=== PATIENT | female | born 1980 | race Two or more races ===

== ENCOUNTER 2016-10-12 17:03 | Emergency (ER) | payer MEDICAID ==
[~2016-10-12] VITALS: Ht 165.1 cm; Wt 68.0 kg
[2016-10-12 18:03] VITALS: BP 104/71
[2016-10-12] MEDS ORDERED: NKM (18:04)
[2016-10-12] MEDS ORDERED: TYLENOL EXTRA500 MG ORAL (18:27)
[2016-10-12] MEDS ORDERED: CORTISPORIN EAR10 ML LEFT EAR (18:27)
[2016-10-12 18:43] VITALS: BP 104/71
--- NOTE | 2016-10-12 21:25 | Emergency Room Report ---
History of Present Illness General Chief Complaint: Upper Respiratory Illness Source: Patient Present Illness HPI The patient is a 36 old female presenting with left ear pain and sore throat which began 4 days prior. The patient does admit to swimming frequently but denies Q tip use. Pain is described as an 8/10 dull ache and radiates from the left ear to the left jaw and neck. Pain is worse with touch. The patient denies any discharge from the ear. Patient denies any other symptoms including nausea, vomiting, fever, chills, headache, neck stiffness, photophobia Allergies: Coded Allergies: No Known Allergies (Unverified , 10/12/16) Patient History Past Medical History: see triage record Pertinent Family History: none Last Menstrual Period: 09/28/2016 : 2 Para: 2 Reviewed Nursing Documentation: PMH: Agreed, PSxH: Agreed Nursing Documentation-PMH Past Medical History: No Stated History Review of Systems All Other Systems: negative except mentioned in HPI Physical Exam Vital Signs Date Time Temp Pulse Resp B/P Pulse Ox O2 Delivery O2 Flow Rate FiO2 10/12/16 17:57 97.9 79 16 104/71 100 Room Air Sp02 EP Interpretation: reviewed, normal General Appearance: no apparent distress, alert, GCS 15, non-toxic Head: normocephalic, atraumatic Eyes: bilateral eye PERRL, bilateral eye normal inspection ENT: normal pharynx, normal voice, other - L ear EAC erythema and edema. TTP over tragus Neck: full range of motion, supple/symm/no masses Respiratory: chest non-tender, lungs clear, normal breath sounds, no wheezing, speaking full sentences Cardiovascular #1: regular rate, rhythm, no edema Musculoskeletal: back normal, gait/station normal, normal range of motion, non- tender Neurologic: alert, oriented x3, responsive, motor strength/tone normal, sensory intact, speech normal Psychiatric: judgement/insight normal, memory normal, mood/affect normal, no suicidal/homicidal ideation Skin: normal color, no rash, warm/dry, well hydrated Lymphatic: no adenopathy Medical Decision Making PA Attestation Dr. Crockett is my supervising physician. Patient management was discussed with my supervising physician Diagnostic Impression: Primary Impression: Otitis externa of left ear ER Course The patient is a 36 old female presenting with left ear pain and sore throat which began 4 days prior. Differential diagnosis include but not limited to otitis externa, otitis media, mastoiditis, sinusitis, pharyngitis Physical exam: Vitals within normal limits. No apparent distress. HEENT: Left ear external auditory canal is erythematous and edematous. Maceration is noted. Tympanic membrane is intact. No bulging. There is cervical lymphadenopathy. Otherwise exam is unremarkable The patient will be discharged home with a prescription for Cortisporin. ER precautions given Last Vital Signs Date Time Temp Pulse Resp B/P Pulse Ox O2 Delivery O2 Flow Rate FiO2 10/12/16 18:43 97.9 81 16 104/71 100 Room Air Status: improved Disposition: HOME, SELF-CARE Condition: Improved Scripts Acetaminophen* (TYLENOL EXTRA STRENGTH*) 500 Mg Tablet 500 MG ORAL Q8H Y for Prn Headache/Temp > 101, #30 TAB 0 Refills Prov: CARLIE OROZCO 10/12/16 Neomycin/Polymyxin B Sulf/Hc* (CORTISPORIN EAR SOLUTION*) 10 Ml Solution 4 DROP LEFT EAR QID, #10 ML 0 Refills Prov: CARLIE OROZCO 10/12/16 Referrals: NOT CHOSEN [facility],REFERRING (PCP) Patient Instructions: Otitis Externa Additional Instructions: I discussed my findings with the patient. All questions and concerns have been answered. Treatment and medication compliance have been addressed. I advised the patient that they need to follow up with PMD in 3-5 days. Return to ED if symptoms worsen, new symptoms arise, or if needed for any reason. Patient verbalized understanding of discharge instructions. CARLIE OROZCO Oct 12, 2016 21:25
== END 2016-10-12 18:43 | disposition home or self-care (01) ==
LOC: EMR 18:26
DX: H60.92 Unspecified otitis externa, left ear (principal); R07.0 Pain in throat
CPT/HCPCS: 99284

== ENCOUNTER 2017-11-21 18:46 | Emergency (ER) | payer MEDICAID ==
[~2017-11-21] VITALS: Ht 167.6 cm; Wt 79.4 kg
[~2017-11-21 18:46] MED LIST: CORTISPORIN EAR10 ML LEFT EAR; NKM; TYLENOL EXTRA500 MG ORAL
[2017-11-21 18:55] VITALS: BP 112/70
[2017-11-21] MEDS ORDERED: Solu-MEDROL 125mg Inj IM ONE (19:00)
--- NOTE | 2017-11-21 19:05 | Emergency Room Report ---
History of Present Illness General Chief Complaint: Allergic Reaction Source: Patient Present Illness HPI Patient presents with complaints of rash Fairly diffuse including the upper chest back arms Patient reports that is fairly puritic in nature Denies any shortness of breath denies any chest pain Denies any vomiting or diarrhea the rash started earlier today Patient is on amoxicillin and ibuprofen for a dental infection Denies any neck pain or photophobia she started those medications about one week ago But is fairly adamant that she does not feel it is the medication causing the rash Allergies: Coded Allergies: No Known Allergies (Unverified , 10/12/16) Patient History Past Medical History: see triage record Pertinent Family History: none Reviewed Nursing Documentation: PMH: Agreed; PSxH: Agreed Nursing Documentation-PMH Past Medical History: No History, Except For Review of Systems All Other Systems: negative except mentioned in HPI Physical Exam Vital Signs Date Time Temp Pulse Resp B/P (MAP) Pulse Ox O2 Delivery O2 Flow Rate FiO2 11/21/17 18:50 97.9 77 18 112/70 97 Room Air 97.9 Sp02 EP Interpretation: reviewed, normal General Appearance: well appearing, no apparent distress Head: normocephalic, atraumatic Eyes: bilateral eye PERRL, bilateral eye EOMI ENT: hearing grossly normal, normal pharynx, TMs + canals normal, uvula midline Neck: full range of motion, supple, no meningismus, no bony tend Respiratory: lungs clear, normal breath sounds, no rhonchi, no respiratory distress, no retraction, no accessory muscle use Cardiovascular #1: normal peripheral pulses, regular rate, rhythm, no edema, no gallop, no JVD, no murmur Gastrointestinal: normal bowel sounds, non tender, soft, no mass, no organomegaly, non-distended, no guarding, no hernia, no pulsatile mass, no rebound Genitourinary: no CVA tenderness Musculoskeletal: normal inspection Neurologic: oriented x3, responsive, field sales associate III-XII nml as tested, motor strength/ tone normal, sensory intact Psychiatric: mood/affect normal Skin: other - Urticarial rash involving the upper shoulders chest back area bilateral antecubital fossa no lesions in the oral mucosa Lymphatic: normal inspection, no adenopathy Medical Decision Making Diagnostic Impression: Primary Impression: Allergic reaction ER Course Given the patient's urticarial rash she was treated accordingly I did was to her consideration for possible reaction to the medication she is taking Otherwise has no other recent intake of different foods or change in any cleaning solution Patient will require close follow-up for further allergy testing and consideration She was encouraged to stop taking the medication she was prescribed before she can be given different medication by primary physician Last Vital Signs Date Time Temp Pulse Resp B/P (MAP) Pulse Ox O2 Delivery O2 Flow Rate FiO2 11/21/17 18:55 97.9 18 112/70 97 Room Air 97.9 11/21/17 18:50 77 Status: improved Disposition: HOME, SELF-CARE Condition: Improved Scripts Ranitidine Hcl* (ZANTAC*) 150 Mg Tablet 150 MG ORAL TWICE A DAY, #20 TAB Prov: Armando Brooks DO 11/21/17 Prednisone* (PREDNISONE*) 20 Mg Tablet 20 MG ORAL BID, #10 TAB Prov: Armando Brooks DO 11/21/17 Diphenhydramine Hcl* (BENADRYL*) 25 Mg Capsule 25 MG ORAL Q6H PRN for Itching, #20 CAP Prov: Armando Brooks DO 11/21/17 Additional Instructions: Patient is provided with the discharge instructions notified to follow up with primary doctor in the next 2-3 days otherwise return to the er with any worsening symptoms. Please note that this report is being documented using Down technology. This can lead to erroneous entry secondary to incorrect interpretation by the dictating instrument. Armando Brooks DO Nov 21, 2017 19:05
[2017-11-21] MEDS ORDERED: RANITIDINE HCL150 MG ORAL (19:17)
[2017-11-21] MEDS ORDERED: BENADRYL25 MG ORAL (19:17)
[2017-11-21] MEDS ORDERED: PREDNISONE20 MG ORAL (19:17)
[2017-11-21 19:28] VITALS: BP 112/70
== END 2017-11-21 19:30 | disposition home or self-care (01) ==
LOC: EMR 19:08
DX: T78.40XA Allergy, unspecified, initial encounter (principal); R21 Rash and other nonspecific skin eruption; X58.XXXA Exposure to other specified factors, initial encounter
CPT/HCPCS: 96372; 99284; J2930

== ENCOUNTER 2019-01-10 17:20 | Emergency (ER) | payer MEDICAID ==
[~2019-01-10] VITALS: Ht 162.6 cm; Wt 77.1 kg
[~2019-01-10 17:20] MED LIST changes: +BENADRYL25 MG ORAL; +PREDNISONE20 MG ORAL; +RANITIDINE HCL150 MG ORAL
[2019-01-10] MEDS ORDERED: NKM (17:35)
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
[2019-01-10 17:45] VITALS: BP 118/76
[2019-01-10] MEDS ORDERED: Ketorolac 30mg Inj IM ONE (17:45)
--- NOTE | 2019-01-10 17:55 | NUR ---
ED Nurse Note: PT STATES THERE IS NO CHNACE OF . TORADOL ADMINISTERED AND RADIOLOGY INFORMED. PT SIGNED TEST WAIVER FOR CT.
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
[2019-01-10] MEDS ORDERED: NAPROXEN500 M2 ORAL (18:51)
[2019-01-10] MEDS ORDERED: ROBAXIN500 MG PO (18:51)
--- NOTE | 2019-01-10 18:52 | NUR ---
ED Nurse Note: PT LAYING PEACEFULLY IN BED IN NAD. AOX4. PRESCRIPTIONS AND DISCHARGE PAPERWORK EXPLAINED TO PT. PT VERBALIZES UNDERSTANDING AND ALL QUESTIONS ANSWERED. PRESCRIPTIONS AND DISCHARGE PAPERWORK GIVEN TO PT AND ID WRISTBAND REMOVED. PT WALKED OUT OF ER WITH STEADY GAIT AND ALL BELONGINGS.
[2019-01-10 18:53] VITALS: BP 122/82
--- NOTE | 2019-01-12 17:45 | Diagnostic Imaging Report ---
Indication: Neck pain and trauma Technique: Continuous helical imaging of the cervical spine was obtained transaxially from the skull base to the upper thoracic spine. 2-D coronal and sagittal reformatted images were obtained. Automatic Exposure Control was utilized. Total Dose length Product (DLP): 376.[address] Dose Index Volume (CTDIvol): 17.3 mGy Comparison: None Findings: There is no evidence of an acute fracture or malalignment. There is straightening of the cervical spine which may be due to muscle spasm. Atlantoaxial alignment appears normal. Height and configuration of the vertebral bodies and intervertebral discs are within normal limits. Uncovertebral joints and facets are unremarkable. There is no soft tissue swelling. Impression: Negative cervical spine CT The CT scanner at [facility] is accredited by the [employer] and the scans are performed using dose optimization techniques as appropriate to a performed exam including Automatic Exposure control.
--- NOTE | 2019-01-12 17:45 | Diagnostic Imaging Report ---
Indication: Back pain Technique: Continuous helical transaxial imaging of the lumbar spine was obtained. No IV contrast was administered. Coronal 2-D reformats were also obtained. Study obtained in a Siemens sensation [address] Total Dose length Product (DLP): 373.[address] Dose Index Volume (CTDIvol): 13.6 mGy Comparison: None Findings: There is no evidence of an acute fracture or malalignment. Height and configuration of the vertebral bodies and intervertebral discs are within normal limits. The facets are unremarkable. There is no soft tissue swelling. Impression: Negative lumbar spine CT The CT scanner at [facility] is accredited by the [employer] and the scans are performed using dose optimization techniques as appropriate to a performed exam including Automatic Exposure control.
== END 2019-01-10 18:55 | disposition home or self-care (01) ==
LOC: EMR 17:53
DX: S13.4XXA Sprain of ligaments of cervical spine, initial encounter (principal); S33.5XXA Sprain of ligaments of lumbar spine, initial encounter; V43.52XA Car driver injured in collision with other type car in traffic accident, initial encounter; Y92.410 Unspecified street and highway as the place of occurrence of the external cause
CPT/HCPCS: 72125; 72131; 96372; 99284; J1885

== ENCOUNTER 2019-09-20 10:08 | Emergency (ER) | payer MEDICAID ==
[~2019-09-20] VITALS: Ht 160 cm; Wt 72.6 kg
[~2019-09-20 10:08] MED LIST changes: +NAPROXEN500 M2 ORAL; +ROBAXIN500 MG PO
[2019-09-20 10:24] VITALS: BP 111/79
--- NOTE | 2019-09-20 10:35 | NUR ---
ED Nurse Note: pt. aaox4. ambulatoryper pt. si here due to right arm pain, numbness radiating to shoulder/chest since yesterday; Reports no N/V or diaphoresis. Reports no injury or heavy lifting.
[2019-09-20] MEDS ORDERED: IBUPROFEN600 MG ORAL ×2 (12:34→12:42)
[2019-09-20 12:44] VITALS: BP 124/74
--- NOTE | 2019-09-20 12:44 | NUR ---
ED Nurse Note: pt. stated she feels better now
[2019-09-20 12:50] VITALS: BP 124/74
--- NOTE | 2019-09-20 12:50 | NUR ---
ER DISCHARGE NOTE: Patient is cleared to be discharged per ERMD, pt is aox4, on room air, with stable vital signs. pt was given dc and prescription instructions, pt was able to verbalize understanding, pt id band removed. pt is able to ambulate with steady gait. pt took all belongings.
--- NOTE | 2019-09-27 10:12 | Emergency Room Report ---
History of Present Illness General Chief Complaint: Pain Source: Patient Present Illness HPI Patient is a 39-year-old female presents after increased right upper extremity pain. Pain is worse with movement. Denies recent trauma. Denies prior heavy lifting. Associated right-sided hand paresthesias. Reports having some right- sided neck discomfort. As well as right shoulder pain. Denies any fever. Denies similar symptoms in the past. Allergies: Coded Allergies: No Known Allergies (Unverified , 10/12/16) Patient History Past Medical History: see triage record Last Menstrual Period: 09/15/19 Reviewed Nursing Documentation: PMH: Agreed; PSxH: Agreed Nursing Documentation-PMH Past Medical History: No History, Except For Review of Systems All Other Systems: negative except mentioned in HPI Physical Exam General Appearance: well appearing, no apparent distress, GCS 15 Head: normocephalic, atraumatic Eyes: bilateral eye PERRL ENT: hearing grossly normal, normal voice Neck: full range of motion, supple Respiratory: lungs clear, no respiratory distress, speaking full sentences Cardiovascular #1: normal inspection, normal peripheral pulses, regular rate, rhythm Cardiovascular #2: 4+ radial (R), 4+ radial (L) Gastrointestinal: normal inspection Musculoskeletal: normal inspection, normal range of motion, no calf tenderness , decreased range of mation - Decreased range of motion of the right shoulder Neurologic: alert, motor strength/tone normal, music video producer III-XII nml as tested, oriented x3, normal gait Psychiatric: mood/affect normal Skin: normal color, no rash, other - cap refill normal Medical Decision Making Diagnostic Impression: Primary Impression: Extremity pain ER Course Patient presented for right upper extremity pain. Differential diagnosis include was not limited to myocardial infarction, vascular occlusion, cervical radiculopathy among others. Patient has a benign exam and does not appear to require any imaging or laboratory testing at this time. EKG interpreted by me showed normal sinus rhythm without acute ST or T wave changes. Patient pulses appear to be normal. She is neurologically appears to be intact. There is no pronator drift noted. Reflexes appear to be normal. Patient is given medications for pain. She is advised to follow-up with her primary care physician for further evaluation and treatment of right upper extremity pain. Patient symptoms appear to be consistent with some chronic rotator cuff instability. She was given ibuprofen. The patient is advised to follow up with primary care doctor in 1-2 days. Patient is advised to return if any worsening condition or if any changes in status that are concerning. This report is dictated with [employer] floor installer software which may occasionally lead to discrepancies related to use of this software. Status: improved Disposition: HOME, SELF-CARE Condition: Stable Scripts Ibuprofen* (MOTRIN*) 600 Mg Tablet 600 MG ORAL Q8H PRN for For Pain, #30 TAB 0 Refills Prov: Kalpesh Astorga MD 09/20/19 Referrals: [facility],REFERR[facility] (PCP) Patient Instructions: Muscle Pain, Adult Kalpesh Astorga MD Sep 27, 2019 10:12
== END 2019-09-20 12:50 | disposition home or self-care (01) ==
LOC: EMR 12:50
DX: M79.601 Pain in right arm (principal); R07.9 Chest pain, unspecified
CPT/HCPCS: 93005; Z7502; 99283

== ENCOUNTER 2020-01-12 19:29 | Emergency (ER) | payer MEDICAID ==
[~2020-01-12] VITALS: Ht 167.6 cm; Wt 79.4 kg
[~2020-01-12 19:29] MED LIST changes: +IBUPROFEN600 MG ORAL
[2020-01-12 19:44] VITALS: BP 124/85
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
--- NOTE | 2020-01-12 19:49 | NUR ---
ED Nurse Note: ERMD at bedside
[2020-01-12] MEDS ORDERED: Ketorolac 30mg Inj IM ONE (20:00)
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
--- NOTE | 2020-01-12 20:07 | NUR ---
ED Nurse Note: all medications administered. pt tolerated well. no ss of distress noted. will continue to monitor.
[2020-01-12] MEDS ORDERED: ROBAXIN-500MG ORAL (20:15)
[2020-01-12] MEDS ORDERED: TRAMADOL HCL50 MG ORAL (20:15)
[2020-01-12 20:38] VITALS: BP 120/75
--- NOTE | 2020-01-12 20:38 | NUR ---
ER DISCHARGE NOTE: Patient is cleared to be discharged home per ERMD, pt is aox4, 98% on room air, with stable vital signs. pt was given dc and prescription instructions, pt was able to verbalize understanding, pt id band removed. pt is able to ambulate with steady gait. pt took all belongings.
== END 2020-01-12 20:38 | disposition home or self-care (01) ==
LOC: EMR 19:58
DX: S16.1XXD Strain of muscle, fascia and tendon at neck level, subsequent encounter (principal); M62.838 Other muscle spasm; X58.XXXD Exposure to other specified factors, subsequent encounter; M54.6 Pain in thoracic spine
CPT/HCPCS: 96372; J1885; Z7502; 99284

== ENCOUNTER 2020-03-14 11:35 | Emergency (ER) | payer MEDICAID ==
[~2020-03-14] VITALS: Ht 170.2 cm; Wt 87.1 kg
[~2020-03-14 11:35] MED LIST changes: +ROBAXIN-500MG ORAL; +TRAMADOL HCL50 MG ORAL
[2020-03-14 12:26] LABS: BASOPHILS % (AUTO) 1.1 % (0.0-2.0); EOSINOPHILS % (AUTO) 5.2 % (0.0-3.0); HEMATOCRIT 34.9 % (37.0-47.0); HEMOGLOBIN 10.8 G/DL (12.0-16.0); MEAN CORPUSCULAR VOLUME 85 FL (80-99); NEUTROPHILS % (AUTO) 67.6 % (45.0-75.0); PLATELET COUNT 344 K/UL (150-450); RED CELL DISTRIBUTION WIDTH 13.2 % (11.6-14.8)
[2020-03-14 12:40] LABS: APPEARANCE,URINE SLIGHTLY CLOUDY; BILIRUBIN, URINE NEGATIVE (NEGATIVE); COLOR,URINE YELLOW; GLUCOSE, URINE (UA) NEGATIVE (NEGATIVE); KETONES,URINE NEGATIVE (NEGATIVE); LEUKOCYTE ESTERASE ,URINE 2+ (NEGATIVE); NITRITE,URINE NEGATIVE (NEGATIVE); PH,URINE 6 (4.5-8.0); PROTEIN,URINE NEGATIVE (NEGATIVE); UROBILINOGEN,URINE NORMAL MG/DL (0.0-1.0)
[2020-03-14 12:43] VITALS: BP 130/90
[2020-03-14 12:44] LABS: ANION GAP 6 mmol/L (5-15); BLOOD UREA NITROGEN 7 mg/dL (7-18); CARBON DIOXIDE 28 MMOL/L (21-32); CHLORIDE 104 MMOL/L (98-107); CREATININE 0.9 MG/DL (0.55-1.30); POTASSIUM 3.8 MMOL/L (3.5-5.1); SODIUM 138 MMOL/L (136-145)
[2020-03-14 12:49] LABS: ALANINE AMINOTRANSFERASE 30 U/L (12-78); ALBUMIN 3.7 G/DL (3.4-5.0); ALKALINE PHOSPHATASE 90 U/L (46-116); ASPARTATE AMINO TRANSFERASE 22 U/L (15-37); BILIRUBIN,TOTAL 0.3 MG/DL (0.2-1.0)
[2020-03-14] MEDS ORDERED: CEPHALEXIN500 M1 ORAL (13:58)
[2020-03-14] MEDS ORDERED: FAMOTIDINE20 MG ORAL (13:58)
[2020-03-14] MEDS ORDERED: cefTRIAXone 1 GM in NS 55 ML IVPB ONE (14:00)
[2020-03-14 14:06] VITALS: BP 115/60
[2020-03-14 14:15] VITALS: BP 115/60
--- NOTE | 2020-03-14 14:54 | Diagnostic Imaging Report ---
Indication: Reason For Exam: CP Technique: Single AP view of the chest. Comparison: None. Findings: The cardiomediastinal silhouette is within normal limits. There is no focal consolidation, pneumothorax or pleural effusion. Osseous structures demonstrate no acute abnormality. IMPRESSION: No radiographic evidence of acute cardiopulmonary process.
--- NOTE | 2020-03-14 14:58 | Emergency Room Report ---
History of Present Illness General Chief Complaint: Chest Pain Source: Patient Present Illness HPI Disclaimer: Please note that this report is being documented using [employer] technology. This can lead to erroneous entry secondary to incorrect interpretation by the dictating instrument. HPI: 39-year-old female presents for multiple complaints. She is feeling complaints of nausea chest pain shortness of breath dizziness and generalized weakness. Symptoms present for the past week. No vomiting no diarrhea no fever. Intermittent cough. Seen by her primary care doctor yesterday and started on medication for sinusitis as she has had nasal congestion. She denies any sick contacts or recent travel. Regarding her chest pain is more in the epigastric region worse with eating and lying down. PMH: Patient denies any past medical history Allergies: Coded Allergies: No Known Allergies (Unverified , 10/12/16) COVID-19 Screening Contact w/high risk pt: No Recent Travel to affected area: No Experienced COVID-19 symptoms?: No COVID-19 Testing performed PUBLIC HEALTH REGISTRAR: No Patient History Now: No Reviewed Nursing Documentation: PMH: Agreed; PSxH: Agreed Nursing Documentation-PMH Past Medical History: No History, Except For Review of Systems All Other Systems: negative except mentioned in HPI Physical Exam Vital Signs Date Time Temp Pulse Resp B/P (MAP) Pulse Ox O2 Delivery O2 Flow Rate FiO2 03/14/20 11:54 98.4 93 18 130/90 (103) 98 Room Air Sp02 EP Interpretation: reviewed, normal General Appearance: well appearing, no apparent distress Head: normocephalic, atraumatic Eyes: bilateral eye PERRL, bilateral eye EOMI ENT: hearing grossly normal, moist mucus membranes Neck: full range of motion, supple Respiratory: lungs clear, normal breath sounds, no rhonchi, no respiratory distress, no retraction, no wheezing Cardiovascular #1: normal peripheral pulses, regular rate, rhythm, no murmur Gastrointestinal: non tender, soft, non-distended, no guarding Neurologic: alert, oriented x3, no focal defects Skin: normal color, warm/dry Medical Decision Making Diagnostic Impression: Primary Impression: Atypical chest pain Additional Impression: UTI (urinary tract infection) ER Course MDM: [place] included but not limited to UTI, COVID-19, dehydration, did consider ACS, gastritis, Clinical course-IV inserted IV fluids given. Laboratory studies are sent and showed no significant abnormalities. Urinalysis was concerning for UTI so IV antibiotics given. I suspect this may be a cause of patient's generalized weakness and general malaise. She complained of more epigastric pain and less likely chest pain I suspect more likely gastritis or acid reflux will start patient on antacid. EKG had no ischemic changes. Chest x-ray clear. Patient stable for discharge home with continued outpatient follow-up. Given return precautions. COVID-19 testing negative Labs - Laboratory Tests Test 03/14/20 12:15 White Blood Count 9.0 K/UL (4.8-10.8) Red Blood Count 4.10 M/UL (4.20-5.40) L Hemoglobin 10.8 G/DL (12.0-16.0) L Hematocrit 34.9 % (37.0-47.0) L Mean Corpuscular Volume 85 FL (80-99) Mean Corpuscular Hemoglobin 26.4 PG (27.0-31.0) L Mean Corpuscular Hemoglobin Concent 31.0 G/DL (32.0-36.0) L Red Cell Distribution Width 13.2 % (11.6-14.8) Platelet Count 344 K/UL (150-450) Mean Platelet Volume 6.2 FL (6.5-10.1) L Neutrophils (%) (Auto) 67.6 % (45.0-75.0) Lymphocytes (%) (Auto) 19.0 % (20.0-45.0) L Monocytes (%) (Auto) 7.0 % (1.0-10.0) Eosinophils (%) (Auto) 5.2 % (0.0-3.0) H Basophils (%) (Auto) 1.1 % (0.0-2.0) Urine Color Yellow Urine Appearance Slightly cloudy Urine pH 6 (4.5-8.0) Urine Specific [place] 1.020 (1.005-1.035) Urine Protein Negative (NEGATIVE) Urine Glucose (UA) Negative (NEGATIVE) Urine Ketones Negative (NEGATIVE) Urine Blood 3+ (NEGATIVE) H Urine Nitrite Negative (NEGATIVE) Urine Bilirubin Negative (NEGATIVE) Urine Urobilinogen Normal MG/DL (0.0-1.0) Urine Leukocyte Esterase 2+ (NEGATIVE) H Urine RBC 5-10 /HPF (0 - 2) H Urine WBC 20-30 /HPF (0 - 2) H Urine Squamous Epithelial Cells Many /LPF (NONE/OCC) H Urine Bacteria Few /HPF (NONE) Sodium Level 138 MMOL/L (136-145) Potassium Level 3.8 MMOL/L (3.5-5.1) Chloride Level 104 MMOL/L (98-107) Carbon Dioxide Level 28 MMOL/L (21-32) Anion Gap 6 mmol/L (5-15) Blood Urea Nitrogen 7 mg/dL (7-18) Creatinine 0.9 MG/DL (0.55-1.30) Estimated Glomerular Filtration Rate > 60 mL/min (>60) Glucose Level 101 MG/DL (74-106) Calcium Level 9.0 MG/DL (8.5-10.1) Total Bilirubin 0.3 MG/DL (0.2-1.0) Aspartate Amino Transferase (AST) 22 U/L (15-37) Alanine Aminotransferase (ALT) 30 U/L (12-78) Alkaline Phosphatase 90 U/L (46-116) Troponin I 0.000 ng/mL (0.000-0.056) Total Protein 7.4 G/DL (6.4-8.2) Albumin 3.7 G/DL (3.4-5.0) Globulin 3.7 g/dL Albumin/Globulin Ratio 1.0 (1.0-2.7) Microbiology Date/Time Source Procedure Growth Status 03/14/20 12:40 Nasopharynx SARS-CoV-2 RdRp Gene Assay - Final Complete On reevaluation: Vital signs stable patient in no acute distress Plan-discharge home with outpatient follow-up and return precautions EKG Diagnostic Results Rate: normal Rhythm: NSR ST Segments: no acute changes Chest X-Ray Diagnostic Results Chest X-Ray Diagnostic Results : Chest X-Ray Ordered: Yes # of Views/Limited/Complete: 1 View Indication: Chest Pain Interpretation: no consolidation, no effusion, no pneumothorax Impression: No acute disease Electronically Signed by: Levi Jonas MD Last Vital Signs Date Time Temp Pulse Resp B/P (MAP) Pulse Ox O2 Delivery O2 Flow Rate FiO2 03/14/20 14:15 98.4 69 16 115/60 98 Room Air Disposition: HOME, SELF-CARE Condition: Improved Scripts Cephalexin* (KEFLEX*) 500 Mg Tablet 500 MG ORAL EVERY 8 HOURS, #21 CAP Prov: Levi Jonas M.D. 03/14/20 Famotidine* (Pepcid 20mg tablet*) 20 Mg Tablet 20 MG ORAL TWICE A DAY, #60 TAB 0 Refills Prov: Levi Jonas M.D. 03/14/20 Referrals: NON PHYSICIAN (PCP) Patient Instructions: Nonspecific Chest Pain, Urinary Tract Infection, Easy-to- Read Additional Instructions: Patient is instructed to follow-up with her primary care doctor, primary care clinic or [facility] in 1 to 2 days. Patient instructed to return for any worsening symptoms or concerns. Disclaimer: Please note that this report is being documented using [employer] technology. This can lead to erroneous entry secondary to incorrect interpretation by the dictating instrument. Levi Jonas M.D. Mar 14, 2020 14:58
== END 2020-03-14 14:20 | disposition home or self-care (01) ==
LOC: EMR 12:40
DX: R07.9 Chest pain, unspecified (principal); R11.0 Nausea; R06.02 Shortness of breath; R52 Pain, unspecified; R53.1 Weakness
CPT/HCPCS: 36415; 71045; 80053; 81001; 84484; 85025; 87086; 93005; 96361; 96365; J0696; J7030; U0002; Z7502; 99284

== ENCOUNTER 2020-06-20 10:00 | Inpatient (IN) | payer OTHER ==
[~2020-06-20] VITALS: Ht 167.6 cm; Wt 86.2 kg
[~2020-06-20 10:00] MED LIST changes: +CEPHALEXIN500 M1 ORAL; +FAMOTIDINE20 MG ORAL
[2020-07-14] MEDS ORDERED: FAMOTIDINE20 MG ORAL (07:52)
[2020-07-15] MEDS ORDERED: FLUTICASONE PRO16 G1 NASAL (14:04)
[2020-07-18] VITALS (16 sets, daily range): BP systolic 109–129; BP diastolic 66–80
--- NOTE | 2020-07-18 07:27 | Pre-Procedure Note/Attestation ---
Pre-Procedure Note/Attestation Complete Prior to Procedure Planned Procedure: not applicable Procedure Narrative: Artificial disc replacement of cervical 56 and Anterior cervical discectomy and fusion of C67 Indications for Procedure Pre-Operative Diagnosis: herniation C56,67 Attestation I attest that I discussed the nature of the procedure; its benefits; risks and complications; and alternatives (and the risks and benefits of such alternatives), prior to the procedure, with the patient (or the patient's legal wireless sales representative). I attest that, if there was a reasonable possibility of needing a blood transfusion, the patient (or the patient's legal wireless sales representative) was given the [facility] standardized written summary, pursuant to the [place] Blood Safety Act ([place] Health and Safety Code # 1645, as amended). I attest that I re-evaluated the patient just prior to the surgery and that there has been no change in the patient's H&P, except as documented below: Luis Manuel Camacho MD Jul 18, 2020 07:27
--- NOTE | 2020-07-18 07:28 | Brief Operative Note ---
Immediate Post Operative Note Operative Note Chief Complaint: neck pain and radiculopathy Pre-op Diagnosis: herniation C56,67 Procedure: Artificial disc replacement of cervical 56 and Anterior cervical discectomy and fusion of C67 Post-op Diagnosis: same as pre-op Findings: consistent w/pre-op dx studies Surgeon: Doug Configuration Analyst: Glynn Anesthesiologist: Basil Anesthesia: general Specimen: none Complications: none Condition: stable Fluids: IVF Estimated Blood Loss: minimal Drains: none Implant(s) used?: Yes - prodisc c sz 5, nuvasive interlock c sz 6 , osteocell 1cc, 13mmscrews x 3 Luis Manuel Camacho MD Jul 18, 2020 07:28
[2020-07-18] MEDS ORDERED: HYDROmorphone 1mg/ml Carpuject IVP PRN (07:30)
[2020-07-18] MEDS ORDERED: Milk of Magnesia 30ml Ud ORAL PRN (07:30)
[2020-07-18] MEDS ORDERED: Morphine Sulfate 2mg/ml Inj(IV/IM USE ONLY) IV PRN (07:30)
[2020-07-18] MEDS ORDERED: Chloraseptic Spray 20mL Bottle ORAL PRN (07:30)
[2020-07-18] MEDS ORDERED: HYDROcodone/Acetamin 5/325 tab ORAL PRN ×2 (07:30→09:00)
[2020-07-18] MEDS ORDERED: HYDROcodone/Acetamin 7.5/325 tab ORAL PRN ×2 (07:30→09:00)
[2020-07-18] MEDS ORDERED: Morphine Sulfate 4mg/ml Inj (IV USE ONLY) IV PRN ×2 (07:30)
[2020-07-18] MEDS ORDERED: Naloxone 0.4mg/ml Inj IVP PRN (07:30)
[2020-07-18] MEDS ORDERED: Metoclopramide 10mg/2ml Inj IVP PRN (07:30)
--- NOTE | 2020-07-18 08:50 | Anethesia Preoperative Eval ---
Anesthesia Pre-op PMH/ROS General Date of Evaluation: Jul 18, 2020 Time of Evaluation: 10:02 Anesthesiologist: Basil ASA Score: ASA 2 Mallampati Score Class I : Soft palate, uvula, fauces, pillars visible Class II: Soft palate, uvula, fauces visible Class III: Soft palate, base of uvula visible Class IV: Only hard plate visible Mallampati Classification: Class II Surgeon: Doug Diagnosis: Neck Pain Surgical Procedure: ADR C5-6, ACDF C6-7 Family History: no anesthesia problems Allergies: Coded Allergies: No Known Allergies (Unverified , 10/12/16) Medications: see eMAR Patient NPO?: Yes Past Medical History Gastrointestinal/Genitourinary: Reports: GERD Other: obesity Anesthesia Pre-op Phys. Exam Physician Exam Last Vital Signs Date Time Temp Pulse Resp B/P (MAP) Pulse Ox O2 Delivery O2 Flow Rate FiO2 07/18/20 08:26 Room Air 07/18/20 08:13 97.7 75 18 109/68 (82) 98 Constitutional: NAD Neurologic: CN 2-12 intact Cardiovascular: RRR Respiratory: CTA Gastrointestinal: S/NT/ND Airway Exam Mallampati Score: Class II MO: full ROM: limited Teeth: intact Anesthesia Pre-op A/P Labs Urine Test Test 07/18/20 06:50 Urine HCG, Qualitative Negative (NEGATIVE) Risk Assessment & Plan Assessment: ASA 2 Plan: GA, SED, GlideScope Status Change Before Surgery: No Pre-Antibiotics Dru Grams Ancef IV Given Within 1 Hr of Incision: Yes Time Given: 10:42 Ronald Gracia MD Jul 18, 2020 08:50
[2020-07-18] MEDS ORDERED: LORazepam Inj 2mg/ml 1ml IV PRN (09:00)
[2020-07-18] MEDS ORDERED: LR 1000ml 1,000 ML IVLG SCH (09:00)
[2020-07-18] MEDS ORDERED: Labetalol 5mg/ml 20ml vial IV PRN (09:00)
[2020-07-18] MEDS ORDERED: ceFAZolin sod 2 GM in NS 55 ML IVPB ONE (09:00)
[2020-07-18] MEDS ORDERED: Atropine Sulfate 0.4mg/ml inj IVP PRN (09:00)
[2020-07-18] MEDS ORDERED: Acetaminophen (Non formulary) 100 ML IV ONE (09:00)
[2020-07-18] MEDS ORDERED: Midazolam 2mg/2ml Inj IVP PRN (09:00)
[2020-07-18] MEDS ORDERED: DiphenhydrAMINE 50mg/ml Inj IVP PRN (09:00)
[2020-07-18] MEDS ORDERED: oxyCODONE HCL/Acetaminophen 5/325mg ORAL PRN (09:00)
[2020-07-18] MEDS ORDERED: fentaNYL 100 mcg/2 mL IV PRN (09:00)
[2020-07-18] MEDS ORDERED: Ketorolac 30mg Inj IV PRN (09:00)
[2020-07-18] MEDS ORDERED: Rocuronium Bromide 50mg/5ml Inj IV ONE (09:01)
[2020-07-18] MEDS ORDERED: Succinylcholine 20mg/ml 10ml vial ONE (09:03)
[2020-07-18] MEDS ORDERED: Sodium Chloride 10ml vial INJ ONE (09:57)
[2020-07-18] MEDS ORDERED: Lidocaine 1% MPF 10mg/ml 5ml ONE (09:57)
[2020-07-18] MEDS ORDERED: propofoL 1,000mg/100ml IV ONE (10:00)
[2020-07-18] MEDS ORDERED: Sterile Water Irrig 1000ml IRRIG ONE (10:00)
[2020-07-18] MEDS ORDERED: LR 1000ml ONE (10:00)
[2020-07-18] MEDS ORDERED: NS Irrig 1000ml ONE (10:00)
[2020-07-18] MEDS ORDERED: Lidocaine 1% Plain 30 ml INJ ONE (10:06)
[2020-07-18] MEDS ORDERED: Gelfoam Size TOPIC ONE (10:06)
[2020-07-18] MEDS ORDERED: Thrombin 5000 units TOPIC ONE (10:06)
[2020-07-18] MEDS ORDERED: fentaNYL 100 mcg/2 mL IV ONE (10:07)
[2020-07-18] MEDS ORDERED: Bacitracin 50000 Units Vial ONE (10:07)
--- NOTE | 2020-07-18 11:05 | Immediate Post-Op Evaluation ---
Immediate Post-Op Evalulation Immediate Post-Op Evalulation Procedure: ADR C5-6, ACDF C6-7 Date of Evaluation: Jul 18, 2020 Time of Evaluation: 13:10 IV Fluids: 1000 LR Blood Products: 0 Estimated Blood Loss: 75 Urinary Output: 400 Blood Pressure Systolic: 125 Blood Pressure Diastolic: 78 Pulse Rate: 80 Respiratory Rate: 16 O2 Sat by Pulse Oximetry: 100 Temperature (Fahrenheit): 97.6 Pain Score (1-10): 2 Nausea: No Vomiting: No Complications 0 Patient Status: awake, reacts, patent, extubated, none Hydration Status: adequate Dru Grams Ancef IV Given Within 1 Hr of Incision: Yes Time Given: 10:42 Ronald Gracia MD Jul 18, 2020 11:05
--- NOTE | 2020-07-18 11:06 | 48 Hour Post Anesthesia Eval ---
Post Anesthesia Evaluation Procedure: ADR C5-6, ACDF C6-7 Date of Evaluation: Jul 18, 2020 Time of Evaluation: 15:23 Blood Pressure Systolic: 117 0: 74 Pulse Rate: 88 Respiratory Rate: 18 Temperature (Fahrenheit): 98 O2 Sat by Pulse Oximetry: 100 Airway: patent Nausea: No Vomiting: No Pain Intensity: 2 Hydration Status: adequate Cardiopulmonary Status: Stable Mental Status/LOC: patient returned to baseline Follow-up Care/Observations: 0 Post-Anesthesia Complications: 0 Follow-up care needed: N/A Ronald Gracia MD Jul 18, 2020 11:06
[2020-07-18] MEDS ORDERED: Neostigmine 1mg/ml 10ml Inj ONE (12:11)
[2020-07-18] MEDS ORDERED: Glycopyrrolate 0.2mg/ml 1ml Vial ONE (12:11)
[2020-07-18] MEDS: Hydromorphone 0.5mg/0.5ml inj IVP PRN ×2 (13:34→17:53)
[2020-07-18] MEDS: Meperidine 25mg/1ml Inj (FOR RIGORS ONLY) IV PRN ×2 (13:48→17:53)
[2020-07-18] MEDS: Ketorolac 30mg Inj IV PRN ×2 (14:02→17:54)
--- NOTE | 2020-07-18 14:20 | NUR ---
NURSE NOTES: Patient received from PACU via hospital bed, on O2 3LNC, in stable condition. Patient sleeping, awakens with gentle shaking/name. IVF to right hand, site asymptomatic. Right anterior neck, dermabond, CDI, ice pack in place. Neuro checks intact, skin warm, wiggles, pulses palpable. Bilateral SCDs on. Oriented patient to call light and medical equipment. Belongings reviewed, signed. Bed in lowest position, will continue to monitor. Addendum: 07/18/20 at 2038 by Eden Valenzuela RN Called RT for IS. Report received from Radha GARCIA.
--- NOTE | 2020-07-18 15:37 | Diagnostic Imaging Report ---
CLINICAL HISTORY: Neck pain. Intraoperative fluoroscopic imaging FINDINGS: Fluoroscopy independent procedure performed for cervical spine . 39.3 seconds of fluoroscopy time utilized by the ordering physician. Total cumulative dose is 4.41 mGy. Total of 4 spot images are obtained demonstrating anterior cervical fusion at C6-C7 and artificial disc at C5-C6. IMPRESSION: FLUOROSCOPY GUIDED PROCEDURE.
--- NOTE | 2020-07-18 15:39 | Diagnostic Imaging Report ---
INDICATION: Neck pain TECHNIQUE: Frontal and lateral views of the cervical spine COMPARISON: CT cervical spine dated 01/10/2019 FINDINGS: The patient is status post anterior discectomy and fusion at the levels of C5-C6 and C6-C7. No evidence of immediate hardware-related complication. Cervical lordosis is maintained. No acute fracture or spondylolysis listhesis. There is mild prevertebral soft tissue swelling at the surgical bed. There is scattered subcutaneous emphysema. Visualized lung apices are clear. IMPRESSION: Status post anterior discectomy and fusion at C5-C6 and C6-C7 with associated postoperative appearance.
[2020-07-18] MEDS: ceFAZolin sod 1 GM in D5W 55 ML IV SCH (17:58)
[2020-07-18] MEDS: Docusate 100mg cap ORAL SCH (17:58)
[2020-07-18] MEDS: NS w/KCl 20mEq 1000ml 1,000 ML IV SCH (17:59)
--- NOTE | 2020-07-18 19:30 | NUR ---
NURSE HAND-OFF: Important Events on Shift:Post op admission, Emesis 500 ml Patient Status: stable Diet: Post cervical diet soft easy chew Pending Orders: PT eval 07/19, RX in chart Pending Results/Labs:none Pending MD notification:none Latest Vital Signs: Temperature 97.9 , Pulse 100 , B/P 120 /71 , Respiratory Rate 18 , O2 SAT 99 , Nasal Cannula, O2 Flow Rate 3 . Vital Sign Comment: none Latest Teresa Fall Score: 35 Fall Risk: Medium Risk Safety Measures: Call light Within Reach, Bed Alarm , Side Rails Side Rails x1, Bed position Low and Locked. Fall Precautions: Patient Fall Education Report given to Sukhdev GARCIA.
--- NOTE | 2020-07-18 19:30 | Operative Note - Dictated ---
DATE OF OPERATION: 07/18/2020 SURGEON: Luis Manuel Camacho MD, Orthopaedic Spine Surgeon. GLASS RIBBON MACHINE OPERATOR ASSISTANT: STEPHAN Galdamez. PREOPERATIVE DIAGNOSES: 1. Intractable neck pain. 2. Radiculopathy. 3. Herniation, C5-C6 and C6-C7. 4. Neural foraminal stenosis, C5-C6 and C6-C7. 5. Stenosis. POSTOPERATIVE DIAGNOSES: 1. Intractable neck pain. 2. Radiculopathy. 3. Herniation, C5-C6 and C6-C7. 4. Neural foraminal stenosis C5-C6 and C6-C7. 5. Stenosis. PROCEDURE PERFORMED: 1. Anterior cervical discectomy and artificial disc replacement of C5-C6 using ProDisc C, size 5. 2. Anterior cervical discectomy and fusion of C6-C7 using NuVasive Interlock C, size 6 PEEK cage, with three screws of 13 mm length and 1 mL of Osteocel allograft bone and local autograft. 3. Use of intraoperative microscope. 4. Motor-evoked potential monitoring. 5. Somatosensory-evoked potential monitoring. 6. Supervision and interpretation of fluoroscopy. COMPLICATIONS: None. ANESTHESIA: General. ESTIMATED BLOOD LOSS: Less than 100 mL. INDICATIONS FOR SURGERY: This patient is a 40-year-old female, who has a history of diagnoses as listed above. As of result of this, the patient sustained intractable neck pain, radiculopathy, herniation of C5-C6 and C6-C7, neural foraminal stenosis of C5-C6 and C6-C7, and stenosis. We tried a course of conservative management, but despite this course, there was still a significant component of persistent, recalcitrant neck pain and arm pain. The MRI demonstrated significant neural foraminal compromise secondary to disc herniations at C5-C6 and C6-C7. We had a long discussion with Ashokny regarding the risks and benefits of surgery. Our discussion included but was not limited to nonoperative management, chiropractic management, another epidural steroid injection as well as definitive management in the form of surgery. We recommended an artificial disc replacement of cervical C5-C6 and anterior cervical discectomy and fusion of cervical C6-C7 as final definitive management. We reviewed the risks and benefits of surgery with the patient. Our discussion included a comprehensive review of the clinical issues and the nature of the clinical decision. We reviewed the alternatives, including doing nothing. The patient elected to proceed accordingly with an artificial disc replacement of cervical C5-C6 and anterior cervical discectomy and fusion of cervical C6-C7. We had a long discussion regarding the risks, alternatives, and benefits of surgery. Our description of the risks included a discussion in person as well as a signed consent which detailed all pertinent risks from the procedure itself. Briefly, our discussion included but was not limited to infection, bleeding, pseudarthrosis, spinal cord injury, neurovascular injury, dural tear, CSF leak, neuropathy, paralysis, permanent weakness/drop foot/drop arm, paresthesias, blindness, palsy, and weakness. The patient understood there may be a need for a revision surgery or additional procedures. Approach-related complications including dysphonia, dysphagia, blindness, permanent vocal cord and neural injury, hematoma, swallowing and breathing difficulty. Medical complications were reviewed including liver, kidney, shock, cardiopulmonary failure, anesthesia complications including , swelling, damage to the musculature, larynx/voice injury or loss, esophagus/throat, trachea, blood vessels and muscles/muscular sprain and lungs/pneumothorax during this surgical procedure; injury to deeper structures may be temporary or permanent. After this review of risks, the patient understood these and elected to proceed. A written and verbal consent was given. We discussed the pros and cons of all the alternatives. We discussed the uncertainties associated with the decision. Afterwards, I assessed the patient's understanding and explored her preferences. All questions were answered and no guarantees were given. Medical clearance was obtained prior to surgery. INTRAOPERATIVE FINDINGS: C5-C6; at C5-C6, the disc itself was soft and spongy. There was no calcification or crumbled nature to the disc . Upon removal of the disc, I noticed a discrete tear approximately 10 degrees cephalad to caudad in the posterior longitudinal ligament on the right side. The edges of the tear appeared fresh. Mobilization of the tear with Microsect 1-B led to discovery of nuclear fragments in the nucleus pulposus, which had torn through and were encroaching on the neural foramina therein and the posterior spinal cord posteriorly to the thecal sac. C6-C7; at C6-C7, the disc itself was soft and spongy. It was not calcified, dehydrated, or desiccated. After removal of the majority of the disc, I noticed a tear in the posterior longitudinal ligament. This tear was approximately 10 degrees cephalad to caudad, again on the right neural foramina, and a separate tear more vertical in line, which was left-sided. These tears demonstrated free edges, which appeared fresh and not necessarily degenerative in any way. Mobilization of these edges with a Microsect 1-B led to discovery of nuclear pulposus tissue posterior to the torn edges. Upon dissection of this, I noted this led to communication of some nucleus pulposus tissue posteriorly with encroachment on the neural foramina and the thecal sac. This was resected without difficulty with Kerrison 1 and Kerrison 2 rongeur until complete neural foraminotomy was performed without any difficulty. DESCRIPTION OF PROCEDURE: Under the benefit of general endotracheal anesthesia and with the assistance of the entire operative team, the patient was moved from the rvillas onto the operative table in the supine position. The head was secured and carefully positioned appropriately. Bilateral arms were secured with Gel Pads and foam and all bony prominences were padded. For the bilateral lower extremities, SCD and KINGSLEY hose were placed for DVT prophylaxis. A surgical timeout was called, which corroborated our planned procedure of artificial disc replacement of cervical C5-C6 and anterior cervical discectomy and fusion of cervical C6-C7. Preoperative antibiotics were administered within 30 minutes of the incision for antibiotic prophylaxis. Using lateral fluoroscopic radiography, the operative levels were delineated. Next, the wound was prepped and draped with chlorhexidine and sterile drapes. An incision was based on lateral fluoroscopy and we centered our incision at the C5-C6 and C6-C7 interspace and next, using a standard Mtz-Us anterior-based approach, the incision was taken down through the skin and subcutaneous tissues until the vertebral bodies and their corresponding disc spaces were visualized. A needle was placed into the interspace to confirm placement of the operative interspace and we performed the remainder of procedure under microscopic visualization. Next, using bipolar and Bovie cautery to ensure meticulous hemostasis, the longus colli was mobilized bilaterally and retractors were placed deep to the longus colli bilaterally to address retraction. Next, we turned our attention to the radical anterior discectomy. This was initially performed at C5-C6 first by using a 15 blade scalpel followed by narrow pituitaries and a Microsect 5-B curette was used to denude the endplate of all cartilaginous tissue. Next, using a [employer] AM8 drill bit, the vertebral endplates were denuded of all residual cartilage in a esnd-xd-kgyt and inrwp-un-rwchu fashion, and ultimately the posterior uncinate joints bilaterally and posterior osteophytic lips and margins were carefully denuded until clear visualization of the posterior longitudinal ligament was possible. An endplate preparation was performed in the exact same fashion using an intervertebral orthodontist, sequential distraction was obtained throughout the disc space. We saw a tear/rent in the PLL and this was carefully mobilized and dissected using a Microsect 1-B curette until we visualized a discrete disc herniation with compression of the spinal cord as well as neural foramina, which was right more than left sided. This neural foraminal compression was carefully resected using a Kerrison-1 and Kerrison-2 rongeurs until complete decompression of the spinal cord was visualized and complete decompression of the neural foramina and nerve root therein as well as the axilla and lateral margin of the nerve root was visualized and subsequently completely decompressed. The family was notified at one-hour intervals throughout the procedure to provide for consistent updates. We next turned our attention towards trialing our implant within the disc space. We initially tried size 5 and this ProDisc Cervical spacer fit well in regard to depth and width. This implant was opened and prepared. Next, under direct visualization, I confirmed excellent fit in respect to the anterior and posterior vertebral bodies, the uncinate joints, and in regard to toggle. Once satisfied with this placement on serial AP and lateral fluoroscopy, I turned my attention towards cutting our iris. These were cut in the bones using a reciprocating drill and afterwards all free fragments of bone were irrigated. Next, FloSeal was placed into the interspace, then removed in its entirety, and the implant was inserted using fluoroscopic guidance. Next, the Synthes ProDisc C size 5 ADR was then carefully advanced and secured into the intervertebral space under direct visualization and with supervision of AP and lateral fluoroscopic views. I next turned my attention towards the radical anterior discectomy. This was then performed at cervical C6-C7 first by using a 15 blade scalpel followed by narrow pituitaries and a Microsect 5-B curette was used to denude the endplate of all cartilaginous tissue. Next, using a [employer] AM8 drill bit, the vertebral endplates were denuded of all cartilaginous tissue in a mozw-cw-jxcu and tstie-ji-mpvwj fashion, and ultimately the posterior uncinate joints bilaterally and posterior osteophytic lips and margins were carefully denuded until wide and thorough visualization of the posterior longitudinal ligament was possible. At this level, the endplate preparation was performed in the exact same fashion using an intervertebral orthodontist, sequential distraction was obtained throughout the disc space. We saw a tear/rent in the PLL and this was carefully mobilized and dissected using a Microsect 1-B curette until we visualized an obvious disc herniation with compression of the spinal cord as well as neural foramina, which was right more than left sided. This neural foraminal compression was carefully resected using a Kerrison-1 and Kerrison-2 rongeurs until complete decompression of the spinal cord was visualized and complete decompression of the neural foramina and nerve root therein as well as the axilla and lateral margin of the nerve root was visualized and subsequently completely decompressed. We next turned our attention towards trialing our implant within the disc space. We initially tried size 5 and afterwards size 6 trial from the NuVasive Interlock system at this level, which appeared to be appropriate under AP and lateral fluoroscopy as well as in terms of its height, depth, width, and lack of toggle. The PEEK (polyetheretherketone) interbody cages were then both packed with allograft bone from Osteocel and local autograft bone matrix. Next, these were then carefully advanced and secured into their intervertebral spaces under direct visualization and with supervision of AP and lateral fluoroscopic views. We next turned our attention towards plating. Plating was performed at each level with the NuVasive Interlock-C plating system. A total of three screws, size 13 mm in length were inserted and confirmed under AP and lateral fluoroscopy and confirmed to be in excellent position. After a finger sweep, we confirmed removal of all sponges. The retractor was removed and we next turned our attention to meticulous hemostasis with FloSeal and bipolar cautery. After the sponge and needle count was again found to be correct with our second count, we next turned our attention to closure. The wound was again copiously irrigated with antibiotic-impregnated saline. Closure consisted of 4-0 clear nylon for the platysma, and 5-0 clear nylon for the superficial skin. Final skin closure and dressings consisted of Dermabond. Prior to final closure, a final radiograph was obtained, which demonstrated the hardware was intact with excellent position throughout. The patient tolerated the procedure well. The patient was carefully extubated after the conclusion of surgery. We discussed the findings of the surgery with the family upon completion of the case. At this point, the patient was transferred to the spine floor for further observation. Luis Manuel Camacho M.D. DR: HAYLEE JOB#: [id number] CC:
--- NOTE | 2020-07-18 19:50 | NUR ---
NURSE NOTES: Pt received from RADHA Harmon alert and oriented x4 with no acute s/s of distress noted. On 3L NC, breathing even and unlabored. Post-op incision noted on R lateral neck, with dermabond - dry and intact. Bed in lowest position, call light and belongings within reach. Bed in lowest position, call light and belongings within reach.
[2020-07-18] MEDS: HYDROcodone/Acetamin 7.5/325 tab ORAL PRN (20:29)
[2020-07-19] VITALS: BP 116/68
[2020-07-19] MEDS: NS w/KCl 20mEq 1000ml 1,000 ML IV SCH ×3 (02:00→23:00)
--- NOTE | 2020-07-19 02:15 | NUR ---
nurse's notes: received patient form RADHA Santizo, asleep, easily arousable and in no apparent distress. No complaints of N/V at this time. plan of care to be continued. surgical site on the anterior neck remains clean and with no visible signs of infection. will continue to monitor.
--- NOTE | 2020-07-19 02:21 | NUR ---
NURSE NOTES: Report given to RADHA Olivera. Plan of care endorsed.
[2020-07-19] MEDS: ceFAZolin sod 1 GM in D5W 55 ML IV SCH ×2 (03:56→11:29)
[2020-07-19 04:00] VITALS: BP 112/70
--- NOTE | 2020-07-19 06:29 | NUR ---
NURSE HAND-OFF: Important Events on Shift: no significant events noted this shift Patient Status: stable Diet: see chart Pending Orders: AM labs Pending Results/Labs:see chart Pending MD notification:none Latest Vital Signs: Temperature 98.0 , Pulse 92 , B/P 112 /70 , Respiratory Rate 18 , O2 SAT 95 , Nasal Cannula, O2 Flow Rate 3.0 . Vital Sign Comment: VSS; afebrile Latest Teresa Fall Score: 35 Fall Risk: Medium Risk Safety Measures: Call light Within Reach, Bed Alarm Zone 2, Side Rails Side Rails x2, Bed position Low and Locked. Fall Precautions: Yellow Socks Door Sign Patient Fall Education Report will be given to RADHA Wright
--- NOTE | 2020-07-19 07:45 | NUR ---
NURSE NOTES: Received from RADHA Olivera. Pt alert and oriented x4, On1L NC, no acute s/s of distress noted, breathing even and unlabored. Denied pain at this time. Post-op incision on R lateral neck, with dermabond dry and intact. Bed in lowest position, call light within reach. Bed in lowest position, Will continue to monitor.
[2020-07-19 08:00] VITALS: BP 112/64
[2020-07-19] MEDS: Docusate 100mg cap ORAL SCH ×2 (09:18→18:21)
[2020-07-19] MEDS: Flonase Nasal Inhaler 16gm NASAL SCH (09:18)
[2020-07-19 12:00] VITALS: BP 122/70
--- NOTE | 2020-07-19 12:45 | NUR ---
CASE MANAGEMENT:REVIEW 40 YR OLD FEMALE HERE FOR ELECTIVE SURGERY SI: NECK PAIN AND RADICULOPATHY 97.7 75 18 109/68 98% ON RA IS: TO SURGERY: ARTIFICIAL DISC REPLACEMENT : TO MED/SURG 3 [facility] POST OP 07/19/20 SI: POD #1 98.1 101 18 112/64 96% ON RA IS: IV ANCEF Q8HRS IV DECADRON X1 IVF+KCL @100/HR PEPCID PO BID FLONASE QD IV MORPHINE Q3HRS PRN : MED/SURG STATUS DCP: FROM HOME PLAN: FLACO JHA
--- NOTE | 2020-07-19 15:18 | Pulmonology Progress Note ---
Subjective ROS Limited/Unobtainable: No Allergies: Coded Allergies: No Known Allergies (Unverified , 10/12/16) Objective Last 24 Hour Vital Signs Date Time Temp Pulse Resp B/P (MAP) Pulse Ox O2 Delivery O2 Flow Rate FiO2 07/19/20 12:09 98.5 07/19/20 12:00 98.5 89 18 122/70 (87) 97 07/19/20 09:00 Room Air 07/19/20 08:00 98.1 101 18 112/64 (80) 96 07/19/20 04:40 98.0 07/19/20 04:00 98.0 92 18 112/70 (84) 95 07/19/20 00:00 98.9 103 17 116/68 (84) 97 07/18/20 21:00 Nasal Cannula 3.0 07/18/20 20:00 97.9 100 18 120/71 (87) 99 07/18/20 18:20 98.3 103 20 116/74 (88) 98 07/18/20 17:40 98.4 102 18 117/75 (89) 98 07/18/20 15:50 97.9 105 18 114/70 (85) 98 07/18/20 15:20 98.4 104 16 110/69 (83) 98 Intake and Output 07/18/20 07/19/20 19:00 07:00 Intake Total 2400 ml 1455 ml Output Total 1225 ml 850 ml Balance 1175 ml 605 ml Intake Oral 1300 ml 300 ml IV Total 1100 ml 1155 ml Output Urine Total 650 ml 850 ml Emesis 500 ml Estimated Blood Loss 75 ml # Voids 2 Laboratory Tests 07/19/20 05:41: POC Whole Blood Glucose 140H Current Medications Medications (Trade) Dose Ordered Sig/Alexa Route PRN Reason Start Time Stop Time Status Last Admin Dose Admin Acetaminophen (Tylenol) 650 mg Q4H PRN ORAL headache 07/18/20 07:30 08/17/20 07:29 07/19/20 11:39 Acetaminophen/ Hydrocodone Bitart ([place] 5/325) 1 tab Q3H PRN ORAL pain score 1-3 07/18/20 07:30 07/25/20 07:29 Acetaminophen/ Hydrocodone Bitart ([place] 7.5/325) 1 tab Q3H PRN ORAL pain score 4-6 07/18/20 07:30 12/18/20 07:29 Acetaminophen/ Hydrocodone Bitart ([place] 7.5/325) 2 tab Q3H PRN ORAL pain scale 7-10 07/18/20 07:30 07/25/20 07:29 07/18/20 20:29 Carisoprodol (Soma) 350 mg TIDPRN PRN ORAL spasm 07/18/20 07:30 08/17/20 07:29 Cetylpyridinium Chloride (Cepacol) 1 lozg Q2H PRN SIXTO To Patient Comfort 07/18/20 07:30 10/16/20 07:29 Docusate Sodium (Colace) 100 mg TWICE A DAY ORAL 07/18/20 18:00 08/17/20 17:59 07/19/20 09:18 Famotidine (Pepcid) 20 mg BID ORAL 07/18/20 20:00 10/16/20 19:59 07/19/20 09:17 Fluticasone Propionate (Flonase) 2 spray DAILY NASAL 07/19/20 09:00 08/18/20 08:59 07/19/20 09:18 Hydromorphone HCl (Dilaudid) 1 mg Q2H PRN IVP Breakthrough Pain 07/18/20 07:30 07/25/20 07:29 Magnesium Hydroxide (Mom) 30 ml QIDPRN PRN ORAL Constipation 07/18/20 07:30 08/17/20 07:29 Metoclopramide HCl (Reglan) 10 mg Q6H PRN IVP Nausea & Vomiting 07/18/20 07:30 08/17/20 07:29 07/18/20 22:20 Morphine Sulfate (Morphine Sulfate) 2 mg Q4H PRN IV Mild Pain (Pain Scale 1-3) 07/18/20 07:30 07/25/20 07:29 Morphine Sulfate (Morphine Sulfate) 4 mg Q3H PRN IV Severe Pain (Pain Scale 7-10) 07/18/20 07:30 07/25/20 07:29 Morphine Sulfate (Morphine Sulfate) 4 mg Q4H PRN IV Moderate Pain (Pain Scale 4-6) 07/18/20 07:30 07/25/20 07:29 07/19/20 04:10 Naloxone HCl (Narcan) 0.1 mg PRN PRN IVP RR<12/min, pt unarousable 07/18/20 07:30 10/16/20 07:29 Ondansetron HCl (Zofran) 4 mg Q6H PRN IVP Nausea & Vomiting 07/18/20 07:30 08/17/20 07:29 07/19/20 10:16 Phenol/Menthol (Chloraseptic) 1 spray Q3H PRN ORAL THROAT PAIN 07/18/20 07:30 10/16/20 07:29 07/18/20 17:57 Potassium Chloride/Sodium Chloride 1,000 ml @ 100 mls/hr Q10H IV 07/18/20 16:00 08/17/20 15:59 07/19/20 03:57 Prochlorperazine (Compazine) 10 mg Q6H PRN IVP Nausea & Vomiting 07/18/20 07:30 08/17/20 07:29 Temazepam (Restoril) 15 mg HSPRN PRN ORAL Insomnia 07/18/20 07:30 07/25/20 07:29 Assessment/Plan Assessment/Plan Progress Noted HPI: Patient is a 40 year old woman s/p ADR C5-6, ACDF C6-7 Pain controlled Allergies: Coded Allergies: No Known Allergies (Unverified , 10/12/16) Medications: noted Objective Vital Signs noted Constitutional: WNWD HEENT: Surgical dressings Neurologic: No focal signs Cardiovascular: RRR,HS1,HS2 RRR Respiratory: CTAB Gastrointestinal: S/NT/ND Assessment: s/p ADR C5-6, ACDF C6-7 Stablepost operatively Plan: Post operative care Incentive spirometer PPX Pain medications PT Tom Mccauley MD Jul 19, 2020 15:18
[2020-07-19 16:00] VITALS: BP 111/65
[2020-07-19] MEDS ORDERED: Tubing IV Secondary IV ONE (16:07)
--- NOTE | 2020-07-19 16:24 | NUR ---
PT Note PT ish completed, treatment initiated. Patient was instructed on log rolling techniques. She has muscle weakness in BLE's, more on the LLE with c/o numbness on the lateral aspect of the left leg and entire left foot. Patient needs PT to increase her muscle strength and instruct/train on proper log rolling techniques for safe and independent mobility and gait to enable her to return home. Addendum: 07/19/20 at 1625 by AUGUSTINA RIBEIRO PT Amended: Links added.
--- NOTE | 2020-07-19 19:29 | NUR ---
NURSE HAND-OFF: Important Events on Shift:[c/o headache and nausea] Patient Status: [stable] Diet: [post op cervical] Pending Orders: [] Pending Results/Labs:[] Pending MD notification:[] Latest Vital Signs: Temperature 99.1 , Pulse 94 , B/P 111 /65 , Respiratory Rate 18 , O2 SAT 100 , Room Air, O2 Flow Rate 3.0 . Vital Sign Comment: [stable] Latest Teresa Fall Score: 35 Fall Risk: Medium Risk Safety Measures: Call light Within Reach, Bed Alarm Zone 2, Side Rails Side Rails x2, Bed position Low and Locked. Fall Precautions: Yellow Socks Door Sign Patient Fall Education Report given to [RADHA Chavez].
--- NOTE | 2020-07-19 20:23 | NUR ---
NURSE NOTES: patient resting in bed, no pain or dsicomfort noted, encouraged to use is.
[2020-07-19 20:24] VITALS: BP 120/76
[2020-07-20] VITALS: BP 117/75
[2020-07-20] MEDS: HYDROcodone/Acetamin 7.5/325 tab ORAL PRN ×4 (00:20→17:49)
[2020-07-20] MEDS: NS w/KCl 20mEq 1000ml 1,000 ML IV SCH (03:37)
[2020-07-20 04:00] VITALS: BP 129/85
--- NOTE | 2020-07-20 06:51 | NUR ---
NURSE HAND-OFF: Important Events on Shift:[] patient had restful night. Patient Status: [] stable Diet: [] post cervical diet Pending Orders: [] none Pending Results/Labs:[]none Pending MD notification:[] none Latest Vital Signs: Temperature 98.2 , Pulse 103 , B/P 129 /85 , Respiratory Rate 20 , O2 SAT 90 , Room Air, O2 Flow Rate 3.0 . Vital Sign Comment: [] Latest Teresa Fall Score: 35 Fall Risk: Medium Risk Safety Measures: Call light Within Reach, Bed Alarm Zone 2, Side Rails Side Rails x2, Bed position Low and Locked. Fall Precautions: Yellow Socks Door Sign Patient Fall Education Report given to []. Addendum: 07/20/20 at 07 by Kathy Enciso RN report given to oscar aaron Addendum: 07/20/20 at 07 by Kathy Enciso RN report given to rfances aaron
[2020-07-20 08:00] VITALS: BP 121/82
--- NOTE | 2020-07-20 08:03 | NUR ---
NURSE NOTES: Received report from Kathy GARCIA. Patient is awake and oriented, in no distress, reporting pain rated 8/10 at surgical site, medicated per order. Surgical site clean, no bleeding noted. IVF running per order, SCD's off at this time as patient is getting OOB to go to restroom. Patient updated on plan of care. Side rails upx2, bed low and locked, call light within reach.
[2020-07-20] MEDS: Docusate 100mg cap ORAL SCH ×2 (09:05→17:48)
[2020-07-20] MEDS: Flonase Nasal Inhaler 16gm NASAL SCH (09:05)
--- NOTE | 2020-07-20 10:12 | NUR ---
NURSE NOTES: Patient c/o chest pain, patient described pain as "pressure", VS stable BP 126/82, HR 83, patient appears calm. Called and left Dr. Mccauley a voicemail for further orders, awaiting callback.
--- NOTE | 2020-07-20 11:07 | NUR ---
NURSE NOTES: No callback from Dr. Mccauley received. Received call from Dr. Camacho who ordered an EKG for the patient, order entered and RT notified. Patient states pain is subsiding. Per MD, place ice packs on anterior and posterior neck for pain, will carry out.
[2020-07-20 12:00] VITALS: BP 126/83
--- NOTE | 2020-07-20 13:30 | NUR ---
NURSE NOTES: EKG done, showed NSR. Patient not having chest pain.
--- NOTE | 2020-07-20 14:00 | NUR ---
CASE MANAGEMENT:REVIEW 07/20/20 SI: POD #2 98.1 83 16 126/83 97% ON RA IS: IVF+KCL @100/HR PEPCID PO BID FLONASE QD IV MORPHINE Q3HRS PRN : MED/SURG STATUS DCP: FROM HOME PLAN: PT
[2020-07-20] MEDS ORDERED: CEPHALEXIN500 MG ORAL (14:28)
--- NOTE | 2020-07-20 15:24 | Pulmonology Progress Note ---
Subjective ROS Limited/Unobtainable: No Allergies: Coded Allergies: No Known Allergies (Unverified , 10/12/16) Objective Last 24 Hour Vital Signs Date Time Temp Pulse Resp B/P (MAP) Pulse Ox O2 Delivery O2 Flow Rate FiO2 07/20/20 12:00 98.1 83 16 126/83 (97) 97 07/20/20 08:00 98.4 91 16 121/82 (95) 94 07/20/20 04:00 98.2 20 129/85 (100) 90 07/20/20 00:00 98.5 103 20 117/75 (89) 99 07/19/20 21:00 Room Air 07/19/20 20:24 99.1 88 20 120/76 (91) 98 07/19/20 18:51 99.1 07/19/20 16:00 99.1 94 18 111/65 (80) 100 Microbiology Date/Time Source Procedure Growth Status 07/18/20 07:50 Nasal Nares MRSA Culture - Final NO METHICILLIN RESISTANT STAPH AUREUS... Complete Current Medications Medications (Trade) Dose Ordered Sig/Alexa Route PRN Reason Start Time Stop Time Status Last Admin Dose Admin Acetaminophen (Tylenol) 650 mg Q4H PRN ORAL headache 07/18/20 07:30 08/17/20 07:29 07/19/20 18:21 Acetaminophen/ Hydrocodone Bitart (Tonica 5/325) 1 tab Q3H PRN ORAL pain score 1-3 07/18/20 07:30 07/25/20 07:29 Acetaminophen/ Hydrocodone Bitart (Tonica 7.5/325) 1 tab Q3H PRN ORAL pain score 4-6 07/18/20 07:30 07/25/20 07:29 Acetaminophen/ Hydrocodone Bitart (Tonica 7.5/325) 2 tab Q3H PRN ORAL pain scale 7-10 07/18/20 07:30 07/25/20 07:29 07/20/20 14:27 Carisoprodol (Soma) 350 mg TIDPRN PRN ORAL spasm 07/18/20 07:30 08/17/20 07:29 07/20/20 06:13 Cetylpyridinium Chloride (Cepacol) 1 lozg Q2H PRN SIXTO To Patient Comfort 07/18/20 07:30 10/16/20 07:29 07/20/20 04:35 Docusate Sodium (Colace) 100 mg TWICE A DAY ORAL 07/18/20 18:00 08/17/20 17:59 07/20/20 09:05 Famotidine (Pepcid) 20 mg BID ORAL 07/18/20 20:00 10/16/20 19:59 07/20/20 09:05 Fluticasone Propionate (Flonase) 2 spray DAILY NASAL 07/19/20 09:00 08/18/20 08:59 07/20/20 09:05 Hydromorphone HCl (Dilaudid) 1 mg Q2H PRN IVP Breakthrough Pain 07/18/20 07:30 07/25/20 07:29 Magnesium Hydroxide (Mom) 30 ml QIDPRN PRN ORAL Constipation 07/18/20 07:30 08/17/20 07:29 07/20/20 04:31 Metoclopramide HCl (Reglan) 10 mg Q6H PRN IVP Nausea & Vomiting 07/18/20 07:30 08/17/20 07:29 07/18/20 22:20 Morphine Sulfate (Morphine Sulfate) 2 mg Q4H PRN IV Mild Pain (Pain Scale 1-3) 07/18/20 07:30 07/25/20 07:29 Morphine Sulfate (Morphine Sulfate) 4 mg Q3H PRN IV Severe Pain (Pain Scale 7-10) 07/18/20 07:30 07/25/20 07:29 Morphine Sulfate (Morphine Sulfate) 4 mg Q4H PRN IV Moderate Pain (Pain Scale 4-6) 07/18/20 07:30 07/25/20 07:29 07/19/20 04:10 Naloxone HCl (Narcan) 0.1 mg PRN PRN IVP RR<12/min, pt unarousable 07/18/20 07:30 10/16/20 07:29 Ondansetron HCl (Zofran) 4 mg Q6H PRN IVP Nausea & Vomiting 07/18/20 07:30 08/17/20 07:29 07/19/20 10:16 Phenol/Menthol (Chloraseptic) 1 spray Q3H PRN ORAL THROAT PAIN 07/18/20 07:30 10/16/20 07:29 07/18/20 17:57 Potassium Chloride/Sodium Chloride 1,000 ml @ 100 mls/hr Q10H IV 07/18/20 16:00 08/17/20 15:59 07/20/20 03:37 Prochlorperazine (Compazine) 10 mg Q6H PRN IVP Nausea & Vomiting 07/18/20 07:30 08/17/20 07:29 Temazepam (Restoril) 15 mg HSPRN PRN ORAL Insomnia 07/18/20 07:30 07/25/20 07:29 Assessment/Plan Assessment/Plan Progress Noted HPI: Patient is a 40 year old woman s/p ADR C5-6, ACDF C6-7 Pain earliertoday,neck/upper chest, controlled currently,EKG NSR Allergies: Coded Allergies: No Known Allergies (Unverified , 10/12/16) Medications: noted Objective Vital Signs noted Constitutional: WNWD HEENT: Surgical dressings Neurologic: No focal signs Cardiovascular: RRR,HS1,HS2 RRR Respiratory: CTAB Gastrointestinal: S/NT/ND Assessment: s/p ADR C5-6, ACDF C6-7 Stablepost operatively Plan: Post operative care Incentive spirometer PPX Pain medications PT Tom Mccauley MD Jul 20, 2020 15:24
[2020-07-20 16:00] VITALS: BP 125/81
--- NOTE | 2020-07-20 16:54 | NUR ---
NURSE NOTES: Received call from Dr. Doug MD ordered to discharge patient.
--- NOTE | 2020-07-20 18:53 | NUR ---
NURSE NOTES: Patient discharged at 1840. IV removed intact, ID band removed. Dr. Mccauley saw patient prior to discharge, noted EKG and stated ok to discharge. Patient provided with discharge instructions in [place] language, verbalized understanding of discharge education. Patient provided with Rx, all belongings sent with patient. Patient escorted to private vehicle.
--- NOTE | 2020-07-22 13:11 | Discharge Summary ---
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 Anterior cervical discectomy and artificial disc replacement of C5-C6 using ProDisc C, size 5. 2. Anterior cervical discectomy and fusion of C6-C7 using NuVasive Interlock C, size 6 PEEK cage, with three screws of 13 mm length and 1 mL of Osteocel allograft bone and local autograft. 3. Use of intraoperative microscope. 4. Motor-evoked potential monitoring. 5. Somatosensory-evoked potential monitoring. 6. Supervision and interpretation of fluoroscopy. Hospital Course status post surgery course of recovery uneventful initially IV fluids s/p perioperative antibiotic and steroid neurovascular status closely monitored, remained stable incision remained clean, dry and intact pain management was addressed; pain was controlled remained hemodynamically stable ambulated with PT fall precautions maintained; safe for ambulation DVT prophylaxis provided use of incentive spirometry was encouraged while in the bed slowly started on soft diet Cepacol lozenges were on board as needed tolerated diet , IV fluids discontinued GI prophylaxis provided antiemetics were on board as needed voided freely bowel regimen instituted patient was stable for discharge discharge instructions provided follow up with surgeon in the office as advised FINAL DIAGNOSES 1. Intractable neck pain. 2. Radiculopathy. 3. Herniation, C5-C6 and C6-C7. 4. Neural foraminal stenosis C5-C6 and C6-C7. 5. Stenosis 6. s/p ADR C5-6, ACDF C6-7 Discharge Medications Continued Medications: Cephalexin* (Keflex*) 500 Mg Capsule 500 MG ORAL Q8HR for uti, CAP Famotidine* (Pepcid 20mg tablet*) 20 Mg Tablet 20 MG ORAL TWICE A DAY, #60 TAB 0 Refills Fluticasone Propionate* (Fluticasone Propionate*) 16 Gm [place].susp 2 SPRAY NASAL DAILY for as prescribed, #16 GM Discharge Condition Upon Discharge: stable Discharge Vital Signs Last Vital Signs Date Time Temp Pulse Resp B/P (MAP) Pulse Ox O2 Delivery O2 Flow Rate FiO2 07/20/20 16:00 98.3 81 16 125/81 (96) 98 07/20/20 09:00 Room Air 07/18/20 21:00 3.0 Discharge Disposition Patient was discharged home Discharge Instructions Discharge Instructions Special Instructions I have been assigned to complete a D/C Summary on this account. I was not involved in the patient management Radha Jose NP Jul 22, 2020 13:11
== END 2020-07-20 18:40 | disposition home or self-care (01) | DRG 473 ==
LOC: SDSOVERFLO 07-18 06:35 → 3E 07-18 14:20
PROC: 0RB30ZZ Excision of Cervical Vertebral Disc, Open Approach (ICD-10-PCS; principal; 2020-07-18 10:00)
PROC: 0RG10A0 Fusion of Cervical Vertebral Joint with Interbody Fusion Device, Anterior Approach, Anterior Column, Open Approach (ICD-10-PCS; principal; 2020-07-18 10:00)
PROC: 0RR30JZ Replacement of Cervical Vertebral Disc with Synthetic Substitute, Open Approach (ICD-10-PCS; principal; 2020-07-18 10:00)
DX: M50.122 Cervical disc disorder at C5-C6 level with radiculopathy (principal); M48.02 Spinal stenosis, cervical region; K21.9 Gastro-esophageal reflux disease without esophagitis
CPT/HCPCS: 36415; 72040; 76000; 81025; 82962; 86850; 86900; 86901; 87081; 93005; 94003; 94150; J2180; J2405; J2710; J2765

== ENCOUNTER 2020-07-14 06:49 | Emergency (ER) | payer MEDICAID, OTHER ==
[~2020-07-14] VITALS: Ht 162.6 cm; Wt 81.6 kg
[2020-07-14 07:10] VITALS: BP 132/85
--- NOTE | 2020-07-14 07:10 | NUR ---
ED Nurse Note: Pt walked in from home. Co chest pain that does not raidiate 6/10 for 2 hours. She states that it feels like pressure. It gets better when she breaths in. CHxray done, EKG done at bedside. labs sent. Breathing comfortably on RA, vs stable as documented.
[2020-07-14] MEDS ORDERED: Mylanta II UD 30ml ORAL ONE (07:15)
[2020-07-14] MEDS ORDERED: Dicyclomine HCl 10mg/5ml oral soln ORAL ONE (07:15)
[2020-07-14] MEDS ORDERED: Lidocaine 2% Visc 15ml soln ORAL ONE (07:15)
[2020-07-14 07:24] LABS: BASOPHILS % (AUTO) 1.1 % (0.0-2.0); EOSINOPHILS % (AUTO) 6.3 % (0.0-3.0); HEMATOCRIT 35.1 % (37.0-47.0); HEMOGLOBIN 11.7 G/DL (12.0-16.0); LYMPHOCYTES % (AUTO) 18.5 % (20.0-45.0); MEAN CORPUSCULAR VOLUME 81 FL (80-99); MONOCYTES % (AUTO) 6.3 % (1.0-10.0); NEUTROPHILS % (AUTO) 67.9 % (45.0-75.0); PLATELET COUNT 337 K/UL (150-450); RED BLOOD COUNT 4.35 M/UL (4.20-5.40); RED CELL DISTRIBUTION WIDTH 15.2 % (11.6-14.8); WHITE BLOOD COUNT 9.4 K/UL (4.8-10.8)
--- NOTE | 2020-07-14 07:26 | Emergency Room Report ---
History of Present Illness General Chief Complaint: Chest Pain Source: Patient Present Illness HPI Disclaimer: Please note that this report is being documented using [employer] technology. This can lead to erroneous entry secondary to incorrect interpretation by the dictating instrument. HPI: 40-year-old female with history of GERD, arthritis presents for evaluation of chest pain. Symptoms began this morning approximately 2 hours ago. She reports a pressure over the center of the chest radiating outward bilaterally as well as a burning sensation. She was initially short of breath but this resolved. Denies cough, nasal congestion, sore throat, fever, chills, p alpitations, lightheadedness, nausea, vomiting, abdominal pain. Is no longer taking medication for GERD. Nothing makes it better, nothing makes it worse. She takes ibuprofen regularly for arthritis. Denies hematemesis. PMH: GERD, arthritis PSH: Reviewed Allergies: Denied Social Hx: Non-smoker Allergies: Coded Allergies: No Known Allergies (Unverified , 10/12/16) COVID-19 Screening Contact w/high risk pt: No Recent Travel to affected area: No Experienced COVID-19 symptoms?: No COVID-19 Testing performed [employer]ER: Yes - may 2020 COVID-19 Screening: Negative COVID-19 COVID-19 Testing Source: [facility] Patient History Last Menstrual Period: currently on it Now: No : 2 Para: 2 Nursing Documentation-PMH Past Medical History: No History, Except For Review of Systems All Other Systems: negative except mentioned in HPI Physical Exam Vital Signs Date Time Temp Pulse Resp B/P (MAP) Pulse Ox O2 Delivery O2 Flow Rate FiO2 07/14/20 06:57 98.4 98 15 135/91 (106) 96 Room Air General: Awake and alert, no acute distress HEENT: NC/AT. EOMI. Cardiovascular: RRR. S1 and S2 normal. No murmur appreciated Resp: Normal work of breathing. No cough, wheezing or crackles appreciated Abdomen: Abdomen is soft, nondistended. Nontender Skin: Intact. No abrasions, laceration or rash over the exposed skin MSK: Normal tone and bulk. Moving all extremities. No obvious deformity. Neuro: Awake and alert. Mentating appropriately. Medical Decision Making Diagnostic Impression: Primary Impression: GERD (gastroesophageal reflux disease) Additional Impression: Chest pain ER Course Is a 40-year-old female presenting for evaluation of chest pressure and burning beginning this morning approximately 2 hours prior to arrival. She is awake, alert, stable vital signs. Differential includes not limited to ACS, arrhythmia, GERD, angina, bronchitis, esophageal spasm, gastritis, esophagitis, pneumonia, CHF, atypical chest pain, musculoskeletal chest pain, and others. EKG on arrival shows sinus rhythm without ischemic changes and overall is unremarkable. Chest x-ray does not show infiltrate or other abnormalities. Labs including troponin are within normal limits. The patient's pain resolved after receiving GI cocktail. Suspect her symptoms are related to acid reflux. Will instruct her to start taking her antacid on a regular basis rather than as needed. She also follow-up with her PMD regarding her chest pain and GERD-like symptoms but do not believe she requires hospitalization at this time. Heart score is low. Stable for outpatient follow-up. Instructed to return with new or worsening symptoms. She understands and agrees with this treatment plan. Heart score: History: 1 EC Age: 0 Risk factors: 0 Initial troponin: 0 Total: 1 Laboratory Tests Test 07/14/20 07:05 White Blood Count 9.4 K/UL (4.8-10.8) Red Blood Count 4.35 M/UL (4.20-5.40) Hemoglobin 11.7 G/DL (12.0-16.0) L Hematocrit 35.1 % (37.0-47.0) L Mean Corpuscular Volume 81 FL (80-99) Mean Corpuscular Hemoglobin 26.8 PG (27.0-31.0) L Mean Corpuscular Hemoglobin Concent 33.2 G/DL (32.0-36.0) Red Cell Distribution Width 15.2 % (11.6-14.8) H Platelet Count 337 K/UL (150-450) Mean Platelet Volume 7.0 FL (6.5-10.1) Neutrophils (%) (Auto) 67.9 % (45.0-75.0) Lymphocytes (%) (Auto) 18.5 % (20.0-45.0) L Monocytes (%) (Auto) 6.3 % (1.0-10.0) Eosinophils (%) (Auto) 6.3 % (0.0-3.0) H Basophils (%) (Auto) 1.1 % (0.0-2.0) Sodium Level 138 MMOL/L (136-145) Potassium Level 3.9 MMOL/L (3.5-5.1) Chloride Level 104 MMOL/L (98-107) Carbon Dioxide Level 27 MMOL/L (21-32) Anion Gap 7 mmol/L (5-15) Blood Urea Nitrogen 7 mg/dL (7-18) Creatinine 0.7 MG/DL (0.55-1.30) Estimated Glomerular Filtration Rate > 60 mL/min (>60) Glucose Level 121 MG/DL (74-106) H Calcium Level 8.9 MG/DL (8.5-10.1) Total Bilirubin 0.2 MG/DL (0.2-1.0) Aspartate Amino Transferase (AST) 18 U/L (15-37) Alanine Aminotransferase (ALT) 29 U/L (12-78) Alkaline Phosphatase 99 U/L (46-116) Troponin I 0.001 ng/mL (0.000-0.056) Pro-B-Type Natriuretic Peptide 29 pg/mL (0-125) Total Protein 7.6 G/DL (6.4-8.2) Albumin 3.6 G/DL (3.4-5.0) Globulin 4.0 g/dL Albumin/Globulin Ratio 0.9 (1.0-2.7) L EKG Diagnostic Results Troponin ordered: Yes When was troponin ordered?: Jul 14, 2020 EKG Time: 07:08 Rate: normal Rhythm: NSR ST Segments: no acute changes Other Impression Sinus rhythm, normal axis, normal intervals, QTC 439 ms, no ST segment changes. Rhythm Strip Diag. Results Rhythm Strip Time: 07:08 EP Interpretation: yes Rate: 80s Rhythm: NSR, no PVC's, no ectopy Last Vital Signs Date Time Temp Pulse Resp B/P (MAP) Pulse Ox O2 Delivery O2 Flow Rate FiO2 07/14/20 06:57 98.4 98 15 135/91 (106) 96 Room Air Disposition: HOME, SELF-CARE Condition: Stable Scripts Famotidine* (Pepcid 20mg tablet*) 20 Mg Tablet 20 MG ORAL TWICE A DAY, #60 TAB 0 Refills Prov: Hola Maldonado MD 07/14/20 [facility]: [facility] ([facility]P) Hola Maldonado MD Jul 14, 2020 07:26
--- NOTE | 2020-07-14 07:31 | Diagnostic Imaging Report ---
EXAM: XR Chest, 1 View CLINICAL HISTORY: CP TECHNIQUE: Frontal view of the chest. COMPARISON: Chest radiograph in 2019 FINDINGS: Lungs: Unremarkable. No consolidation. Pleural space: Unremarkable. No pneumothorax. Heart: Unremarkable. No cardiomegaly. Mediastinum: Unremarkable. Bones/joints: Unremarkable. IMPRESSION: Normal chest x-ray.
[2020-07-14 07:39] LABS: ANION GAP 7 mmol/L (5-15); BLOOD UREA NITROGEN 7 mg/dL (7-18); CALCIUM 8.9 MG/DL (8.5-10.1); CARBON DIOXIDE 27 MMOL/L (21-32); CHLORIDE 104 MMOL/L (98-107); CREATININE 0.7 MG/DL (0.55-1.30); POTASSIUM 3.9 MMOL/L (3.5-5.1); SODIUM 138 MMOL/L (136-145)
[2020-07-14 07:47] LABS: ALANINE AMINOTRANSFERASE 29 U/L (12-78); ALBUMIN 3.6 G/DL (3.4-5.0); ALBUMIN/GLOBULIN RATIO 0.9 (1.0-2.7); ALKALINE PHOSPHATASE 99 U/L (46-116); ASPARTATE AMINO TRANSFERASE 18 U/L (15-37); BILIRUBIN,TOTAL 0.2 MG/DL (0.2-1.0)
[2020-07-14] MEDS ORDERED: FAMOTIDINE20 MG ORAL (07:52)
[2020-07-14 08:10] VITALS: BP 135/90
--- NOTE | 2020-07-14 08:10 | NUR ---
ER DISCHARGE NOTE: Patient is cleared to be discharged per ERMD, pt is aox4, on room air, with stable vital signs. pt was given dc instructions, pt was able to verbalize understanding, pt id band and iv site removed without complications. pt is able to ambulate with steady gait. pt took all belongings.
[2020-07-15] MEDS ORDERED: FLUTICASONE PRO16 G1 NASAL (14:04)
== END 2020-07-14 08:10 | disposition home or self-care (01) ==
LOC: EMR 07:05
DX: K21.9 Gastro-esophageal reflux disease without esophagitis (principal); R07.9 Chest pain, unspecified; M19.90 Unspecified osteoarthritis, unspecified site
CPT/HCPCS: 36415; 71045; 80053; 83880; 84484; 85025; 93005; Z7502; 99284